=== PATIENT | female | born 1970 | race Two or more races ===

== ENCOUNTER 2020-11-05 07:33 | Emergency (ER) | payer SELFPAY ==
[~2020-11-05] VITALS: Ht 149.9 cm; Wt 92.7 kg
[2020-11-05] MEDS ORDERED: KETOROLAC 30 MG/1 ML IVPush ONE (08:00)
[2020-11-05] MEDS ORDERED: SODIUM CHLORIDE FLUSH 10ML SYR IVF ONE (08:00)
[2020-11-05] MEDS ORDERED: DIPHENHYDRAMINE 50 MG/ML, 1ML IVPush ONE (08:00)
[2020-11-05] MEDS ORDERED: SODIUM CHLORIDE 0.9% 1,000ML IVBOLUS ONE (08:00)
[2020-11-05] MEDS ORDERED: PROCHLORPERAZINE 5 MG/ML, 2ML IVPush ONE (08:00)
--- NOTE | 2020-11-05 08:50 | NUR ---
RN URGENT CARE: PT TO ROOM FROM LOBBY, GAIT SLOW AND STEADY
[2020-11-05] MEDS ORDERED: DIPHENHYDRAMINE 50 MG/ML, 1ML ONE (09:05)
[2020-11-05] MEDS ORDERED: PROCHLORPERAZINE 5 MG/ML, 2ML ONE (09:05)
[2020-11-05] MEDS ORDERED: KETOROLAC 30 MG/1 ML ONE (09:05)
--- NOTE | 2020-11-05 09:25 | NUR ---
PT BIB VIA POV. PER PT SHE HAS HAD BURNETT x5 DAYS. PT REPORT NO N/V/DIZZINESS/ LOC. 20G PIV PLACED IN R AC. PT RESTING IN [facility], MONITORING IN PLACE, JITENDRA AT THIS TIME, PT MEDICATED PER EMAR, AT BEDSIDE, WCTM.
--- NOTE | 2020-11-05 09:36 | NUR ---
PT AMBULATED STEADILY TO BATHROOM AT THIS TIME.
[2020-11-05 09:53] VITALS: BP 164/97
== END 2020-11-05 10:55 | disposition home or self-care (01) ==
LOC: ED 09:28
DX: G44.219 Episodic tension-type headache, not intractable (principal)
CPT/HCPCS: 96361; 96374; 96375; 99284; J0780; J1200; J1885; J7030